=== PATIENT | male | born 1945 | race Caucasian/White ===

== ENCOUNTER 2019-01-04 16:26 | Emergency (ER) | payer MEDICARE, BC ==
[2019-01-04 18:22] VITALS: BP 106/58
--- NOTE | 2019-01-04 18:24 | EDM.PDOC ---
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 - Related Data Allergies Allergy/AdvReac Type Severity Reaction Status Date / Time No Known Allergies Allergy Verified 01/04/19 18:01 Home Meds: Home Meds Insulin Glarg,Human.Rec.Analog [Lantus] 54 unit SUBCUT BEDTIME 07/19/14 [History ] Insulin Aspart [Novolog] 12 - 15 unit SQ TID 03/30/16 [History] Omeprazole 20 mg PO DAILY 05/18/18 [History] Rosuvastatin [Crestor] 20 mg PO DAILY 05/18/18 [History] metFORMIN [Glucophage XR] 1,000 mg PO DAILY 05/18/18 [History] metFORMIN [Glucophage] 500 mg PO BEDTIME 05/18/18 [History] Past Medical History HEENT History: Reports: Cataract 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 Respiratory History: Reports: None Gastrointestinal History: Reports: None Genitourinary History: Reports: Pyelonephritis Neurological History: Reports: None Psychiatric History: Reports: None Endocrine/Metabolic History: Reports: Diabetes, Type II Hematologic History: Reports: None Immunologic History: Reports: None Oncologic (Cancer) History: Reports: Esophageal Other Oncologic History: esophageal cancer Dermatologic History: Reports: None - Past Surgical History Head Surgeries/Procedures: Reports: None HEENT Surgical History: Reports: Oral Surgery, Tonsillectomy Cardiovascular Surgical History: GI Surgical History: Reports: Appendectomy, Colonoscopy Neurological Surgical History: Reports: C-Spine Musculoskeletal Surgical History: Reports: Other (See Below) Social & Family History - Family History Family Medical History: Noncontributory - Tobacco Use Smoking Status *Q: Former Smoker Used Tobacco, but Quit: Yes Month/Year Tobacco Last Used: 12 - Caffeine Use Caffeine Use: Reports: None - Recreational Drug Use Recreational Drug Use: No ED ROS GENERAL - Review of Systems Review Of Systems: See Below Constitutional: Reports: Weight Loss HEENT: Reports: No Symptoms Respiratory: Reports: No Symptoms Cardiovascular: Reports: No Symptoms Endocrine: Reports: No Symptoms GI/Abdominal: Reports: No Symptoms, Other (He can swallow water. Cannot eat solid foods) : Reports: No Symptoms Musculoskeletal: Reports: No Symptoms Skin: Reports: No Symptoms Neurological: Reports: No Symptoms, Weakness Psychiatric: Reports: No Symptoms Hematologic/Lymphatic: Reports: Anemia Immunologic: Reports: No Symptoms ED EXAM, GENERAL - Physical Exam Exam: See Below Free Text/Narrative:: This pleasant 73-year-old gentleman had recent subacute resection of cancer and has a feeding tube in place the feeding tube came out this evening proxy 45 minutes ago. He was unable to replace it. He denies abdominal pain chest pain shortness breath or lightheadedness. He has remarkably pale. I would guess his hemoglobin is between 8 and 10. Exam Limited By: No Limitations General Appearance: Alert, WD/WN, No Apparent Distress Eye Exam: Bilateral Eye: Normal Inspection (Pale conjunctiva of the [place]brae) Ear Exam: Bilateral Ear: Auricle Normal (During normal) Nose: Normal Inspection Throat/Mouth: Normal Inspection, Normal Lips, Normal Teeth, Normal Gums, Normal Oropharynx, Normal Voice Head: Atraumatic, Normocephalic Neck: Normal Inspection, Other (No bruits) Respiratory/Chest: No Respiratory Distress, Lungs Clear, Normal Breath Sounds, No Accessory Muscle Use, Chest Non-Tender, Other (Sternal incision) Cardiovascular: Normal Peripheral Pulses Peripheral Pulses: 1+: Carotid (L), Carotid (R) (No bruits), Radial (L), Radial (R) GI/Abdominal: Normal Bowel Sounds, Soft, Non-Tender, No Organomegaly, No Distention (Male) Exam: Deferred Rectal (Males) Exam: Deferred Back Exam: Normal Inspection Extremities: Normal Inspection, Normal Range of Motion, Non-Tender, No Pedal Edema Neurological: Alert, Oriented, CN II-XII Intact, Normal Cognition, Normal Gait, No Motor/Sensory Deficits Psychiatric: Normal Affect, Normal Mood Skin Exam: Warm, Dry, Intact ED GENERAL MEDICAL PROCEDURES - Additional/Other Procedure(s) Other (Free Text) Procedure(s): Gastric feeding tube was replaced. The tube could not be advanced beyond 1.8 cmf consequently an catheter placed established entry at the stomach. Once good flow was noted and gastric contents noted than the distal end of the feeding tube was cut off and attempts are made to pass the feeding tube over this catheter. The catheter passed to within 1 cm of the tip in the tips balloon would not allow for the passage consequently a intubation stylette was fashioned with removal of the plastic covering. Once the stylette was in place then the gastrostomy tube advanced over the stylette and through the orifice of the gastric ostomy. Patient tolerated this well. Subsequent flash of Gastrografin resulted good x-ray documented entry/placement of the gastrostomy tube into the stomach. 10 mL of fluid were inflated into the gastrotomy feeding tube balloon. Patient tolerated this well. No couple cases. Course - Vital Signs Last Recorded V/S: Last Vital Signs Temp 35.9 C 01/04/19 16:26 Pulse 69 01/04/19 16:26 Resp 18 01/04/19 16:26 BP 115/69 01/04/19 16:26 Pulse Ox 97 01/04/19 16:26 - Orders/Labs/Meds Orders: Active Orders 24 hr Category Date Time Status KUB [Abdomen 1V Flat] [CR] Stat Exams 01/04/19 17:47 Taken Departure - Departure Time of Disposition: 18:45 (Replacement of gastrostomy feeding tube that had fallen out. Esophageal carcinoma resection. Anemia assumed because of his very pale conjunctival palpebrae.) Disposition: Home, Self-Care 01 Condition: Good Clinical Impression: Complication of feeding tube, Esophageal carcinoma Anemia Qualifiers: Anemia type: iron deficiency Iron deficiency anemia type: chronic blood loss Qualified Code(s): D50.0 - Iron deficiency anemia secondary to blood loss ( chronic) - Discharge Information *PRESCRIPTION DRUG MONITORING PROGRAM REVIEWED*: Not Applicable *COPY OF PRESCRIPTION DRUG MONITORING REPORT IN PATIENT ALDO: Not Applicable Instructions: PEG Tube Home Guide, [id number], Gastrostomy Tube Replacement, Care After Referrals: Abelardo Huang MD [Primary Care Provider] - Forms: ED Department Discharge Additional Instructions: may feed as usual follow up with your primary care as needed - My Orders Last 24 Hours: My Active Orders 01/04/19 17:47 KUB [Abdomen 1V Flat] [CR] Stat - Assessment/Plan Last 24 Hours: My Active Orders 01/04/19 17:47 KUB [Abdomen 1V Flat] [CR] Stat
== END 2019-01-04 18:04 | disposition home or self-care (01) ==
LOC: FB.ED 16:26
DX: K94.23 Gastrostomy malfunction (principal); C15.9 Malignant neoplasm of esophagus, unspecified; D50.0 Iron deficiency anemia secondary to blood loss (chronic); Z87.891 Personal history of nicotine dependence; E11.9 Type 2 diabetes mellitus without complications; Z79.4 Long term (current) use of insulin; Z79.899 Other long term (current) drug therapy
CPT/HCPCS: 49450; 74018; 99283-25

== ENCOUNTER 2021-01-13 19:02 | Inpatient (IN) | payer MEDICARE, BC ==
[2021-01-13] MEDS ORDERED: Sodium Chloride 0.9% 10 ML Syringe FLUSH PRN (19:30)
[2021-01-13] MEDS ORDERED: Ondansetron 4 MG/2 ML SDV IVPUSH STA ×2 (19:31→20:44)
[2021-01-13] MEDS ORDERED: Sodium Chloride 0.9% 1,000 ML IV SCH (19:45)
--- NOTE | 2021-01-13 20:44 | EDM.PDOC ---
ED HPI GENERAL MEDICAL PROBLEM - General Chief Complaint: General Stated Complaint: Nausea & Vomiting Time Seen by Provider: 01/13/21 19:30 Source of Information: Reports: Patient, Family History Limitations: Reports: No Limitations - History of Present Illness INITIAL COMMENTS - FREE TEXT/NARRATIVE: Patient a 75 YO M who presented to the ED with his son because of pe rsistent nausea and vomiting but no diarrhea. It started 4 days ago and couldn't keep anything down and is feeling weak. There is no associated abdominal, changes in bowel movement or urinary symptoms. He doesn't have any fever, chills, cough/cold symptoms. He completed his Covid vaccination 1-2 months ago and no recent exposure. He has a history of stage 3 esophageal CA which was treated with chemo and radiation 2 years ago. Upper Abdomen Pain Score (Numeric/FACES): 4 - Related Data Allergies Allergy/AdvReac Type Severity Reaction Status Date / Time No Known Allergies Allergy Verified 01/13/21 20:18 Home Meds: Home Meds Insulin Glarg,Human.Rec.Analog [Lantus] 54 unit SUBCUT BEDTIME 07/19/14 [History] Insulin Aspart [Novolog] 20 unit SQ TID 03/30/16 [History] Rosuvastatin [Crestor] 20 mg PO DAILY 05/18/18 [History] metFORMIN [Glucophage] 500 mg PO BEDTIME 05/18/18 [History] Aspirin [Aspirin EC] 325 mg PO DAILY 01/13/21 [History] Gabapentin [Neurontin] 100 mg PO BEDTIME 01/13/21 [History] Magnesium 200 mg PO DAILY 01/13/21 [History] Metoprolol Succinate [Toprol XL] 12.5 mg PO DAILY 01/13/21 [History] Mirtazapine 15 mg PO BEDTIME 01/13/21 [History] Pantoprazole Sodium [Protonix] 40 mg PO DAILY 01/13/21 [History] Past Medical History HEENT History: Reports: Cataract 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 Respiratory History: Reports: None Gastrointestinal History: Reports: None Genitourinary History: Reports: Pyelonephritis Neurological History: Reports: None Psychiatric History: Reports: None Endocrine/Metabolic History: Reports: Diabetes, Type II Hematologic History: Reports: None Immunologic History: Reports: None Oncologic (Cancer) History: Reports: Esophageal Other Oncologic History: esophageal cancer Dermatologic History: Reports: None - Past Surgical History Head Surgeries/Procedures: Reports: None HEENT Surgical History: Reports: Oral Surgery, Tonsillectomy Cardiovascular Surgical History: Reports: Coronary Artery Bypass GI Surgical History: Reports: Appendectomy, Colonoscopy Neurological Surgical History: Reports: C-Spine Musculoskeletal Surgical History: Reports: Other (See Below) Other Musculoskeletal Surgeries/Procedures:: CERVICAL SPINE FUSION, BUNIONECTOMY Social & Family History - Family History Family Medical History: No Pertinent Family History - Tobacco Use Tobacco Use Status *Q: Never Tobacco User - Caffeine Use Caffeine Use: Reports: None - Recreational Drug Use Recreational Drug Use: No ED ROS GENERAL - Review of Systems Review Of Systems: See Below Constitutional: Reports: Weakness HEENT: Reports: No Symptoms Respiratory: Reports: No Symptoms Cardiovascular: Reports: No Symptoms Endocrine: Reports: No Symptoms GI/Abdominal: Reports: No Symptoms, Nausea, Vomiting : Reports: No Symptoms Musculoskeletal: Reports: No Symptoms Skin: Reports: No Symptoms Neurological: Reports: No Symptoms Psychiatric: Reports: No Symptoms Hematologic/Lymphatic: Reports: No Symptoms ED EXAM, GENERAL - Physical Exam Exam: See Below Exam Limited By: No Limitations General Appearance: Alert, No Apparent Distress Ears: Normal External Exam, Normal Canal, Hearing Grossly Normal Nose: Normal Inspection, Normal Mucosa, No Blood Throat/Mouth: Normal Inspection, Normal Lips, Normal Teeth Head: Atraumatic, Normocephalic Neck: Normal Inspection, Supple, Non-Tender, Full Range of Motion Respiratory/Chest: No Respiratory Distress, Lungs Clear, Normal Breath Sounds, No Accessory Muscle Use, Chest Non-Tender Cardiovascular: Normal Peripheral Pulses, Regular Rate, Rhythm, No Edema, No Gallop, No JVD, No Murmur, No Rub GI/Abdominal: Normal Bowel Sounds, Soft, Non-Tender, No Organomegaly, No Distention, No Abnormal Bruit, No Mass Back Exam: Normal Inspection, Full Range of Motion Extremities: Normal Inspection, Normal Range of Motion, Non-Tender, No Pedal Edema, Normal Capillary Refill Neurological: Alert, Oriented, CN II-XII Intact, Normal Cognition, Normal Reflexes, No Motor/Sensory Deficits Course - Vital Signs Text/Narrative:: Lab result was discussed with patient and his son NS 1 L bolus Zofran 4 mg IV x2 doses Code status:Full code Last Recorded V/S: Last Vital Signs Temp 36.7 C 01/13/21 19:07 Pulse 99 01/13/21 19:07 Resp 18 01/13/21 19:07 BP 150/73 H 01/13/21 19:07 Pulse Ox 99 01/13/21 19:07 - Orders/Labs/Meds Orders: Active Orders 24 hr Category Date Time Status Patient Status [ADT] Routine ADT 01/13/21 21:08 Active Blood Glucose Check, Bedside [RC] WITHMEALSANDBED Care 01/13/21 21:08 Active Intake and Output [RC] QSHIFT Care 01/13/21 21:11 Active Oxygen Therapy [RC] PRN Care 01/13/21 21:08 Active Pulse Oximetry [RC] PRN Care 01/13/21 21:11 Active Up With Assistance [RC] ASDIRECTED Care 01/13/21 21:08 Active VTE/DVT Education [RC] Per Unit Routine Care 01/13/21 21:08 Active Vital Signs [RC] Q4H Care 01/13/21 21:08 Active Heart Healthy Diet [DIET] Diet 01/14/21 Breakfast Ordered BASIC METABOLIC PANEL,BMP [CHEM] AM Lab 01/14/21 05:11 Ordered CBC WITH AUTO DIFF [HEME] AM Lab 01/14/21 05:11 Ordered MAGNESIUM [CHEM] AM Lab 01/14/21 05:11 Ordered MAGNESIUM [CHEM] AM Lab 01/15/21 05:11 Ordered Docusate Sodium/Sennosides [Senna Plus] Med 01/13/21 21:08 Ordered 1 tab PO BID PRN Enoxaparin [Lovenox] Med 01/13/21 21:15 Ordered 40 mg SUBCUT Q24H Gabapentin [Neurontin] Med 01/14/21 21:00 Ordered 100 mg PO BEDTIME Magnesium [Magnesium] Med 01/14/21 09:00 Ordered 200 mg PO DAILY Metoprolol Succinate [Toprol XL] Med 01/14/21 09:00 Ordered 12.5 mg PO DAILY Mirtazapine [Remeron] Med 01/14/21 21:00 Ordered 15 mg PO BEDTIME Ondansetron [Zofran] Med 01/13/21 21:08 Ordered 4 mg IV Q4H PRN Pantoprazole [ProTONIX] Med 01/14/21 09:00 Ordered 40 mg PO DAILY Rosuvastatin [Crestor] Med 01/14/21 09:00 Ordered 20 mg PO DAILY Sodium Chloride 0.9% [Normal Saline] 1,000 ml Med 01/13/21 19:45 Active IV ASDIRECTED Sodium Chloride 0.9% [Normal Saline] 1,000 ml Med 01/13/21 21:00 Active IV ASDIRECTED Sodium Chloride 0.9% [Saline Flush] Med 01/13/21 19:30 Active 10 ml FLUSH ASDIRECTED PRN hydrOXYzine HCL [Vistaril] Med 01/13/21 21:08 Ordered 50 mg IM Q6H PRN Saline Lock Insert [OM.PC] Routine Oth 01/13/21 19:30 Ordered Resuscitation Status Routine Resus Stat 01/13/21 21:08 Ordered Medication Orders Enoxaparin Sodium (Lovenox) 40 mg SUBCUT Q24H [facility] Gabapentin (Neurontin) 100 mg PO BEDTIME [facility] Hydroxyzine HCl (Vistaril) 50 mg IM Q6H PRN PRN Reason: Nausea/Vomiting Sodium Chloride (Normal Saline) 1,000 mls @ 999 mls/hr IV ASDIRECTED [facility] Last Admin: 01/13/21 19:55 Dose: 999 mls/hr Documented by: MARYLOU Sodium Chloride (Normal Saline) 1,000 mls @ 125 mls/hr IV ASDIRECTED [facility] Last Admin: 01/13/21 20:58 Dose: 125 mls/hr Documented by: MARYLOU Metoprolol Succinate (Toprol Xl) 12.5 mg PO DAILY [facility] Mirtazapine (Remeron) 15 mg PO BEDTIME [facility] Non-Formulary Medication (Magnesium [Magnesium]) 200 mg PO DAILY [facility] Non-Formulary Medication (Insulin Aspart [Novolog Flexpen]) 20 unit SQ TID [facility] Non-Formulary Medication (Insulin Glarg,Human.Rec.Analog [Lantus]) 54 unit SUBCUT BEDTIME [facility] Ondansetron HCl (Zofran) 4 mg IV Q4H PRN PRN Reason: Nausea/Vomiting Pantoprazole Sodium (Protonix) 40 mg PO DAILY [facility] Rosuvastatin Calcium (Crestor) 20 mg PO DAILY [facility] Senna/Docusate Sodium (Senna Plus) 1 tab PO BID PRN PRN Reason: Constipation Sodium Chloride (Saline Flush) 10 ml FLUSH ASDIRECTED PRN PRN Reason: Keep Vein Open Labs: Laboratory Tests 01/13/21 01/13/21 01/13/21 Range/Units 19:50 19:50 19:50 WBC 13.1 H (3.2-10.1) x10-3/uL RBC 3.72 L (3.90-5.90) x10(6)uL Hgb 11.5 L (12.9-17.7) g/dL Hct 34.9 L (38.3-50.1) % MCV 93.8 (80.8-98.7) fL MCH 31.0 (27.0-33.3) pg MCHC 33.1 (28.7-35.3) g/dL RDW 13.9 (12.4-15.0) % Plt Count 251 (117-477) x10(3)uL MPV 7.5 (6.7-11.0) fL Neut % (Auto) 87.0 H (40.3-71.8) % Lymph % (Auto) 3.9 L (15.8-45.3) % [place] % (Auto) 9.0 (5.5-15.2) % Eos % (Auto) 0.1 (0.1-6.8) % Baso % (Auto) 0.0 L (0.3-3.8) % Neut # (Auto) 11.4 H (1.7-6.9) x10-3/uL Lymph # (Auto) 0.5 (0.5-4.5) x10-3/uL [place] # (Auto) 1.2 (0.0-1.2) x10-3/uL Eos # (Auto) 0.0 (0.0-0.6) x10-3/uL Baso # (Auto) 0.0 (0.0-0.3) x10-3/uL Sodium 130 L (135-145) mmol/L Potassium 3.8 (3.5-5.3) mmol/L Chloride 90 L D (100-110) mmol/L Carbon Dioxide 22 (21-32) mmol/L BUN 36 H (7-18) mg/dL Creatinine 2.4 H* (0.70-1.30) mg/dL Est Cr Clr Drug Dosing TNP Estimated GFR (MDRD) 26 L (>60) BUN/Creatinine Ratio 15.0 (9-20) Glucose 439 H* D (80-116) mg/dL Calcium 8.6 (8.6-10.2) mg/dL Total Bilirubin 0.5 (0.1-1.3) mg/dL AST 45 H D (5-25) IU/L ALT 35 D (12-36) U/L Alkaline Phosphatase 130 H (56-112) IU/L Total Protein 7.1 (6.0-8.0) g/dL Albumin 2.7 L (3.2-4.6) g/dL Globulin 4.4 g/dL Albumin/Globulin Ratio 0.6 Amylase 18 L (25-115) U/L Lipase 26 L (73-393) U/L Urine Color (YELLOW) Urine Appearance (CLEAR) Urine pH (5.0-6.5) Ur Specific [place] (1.010-1.025) Urine Protein (NEGATIVE) mg/dL Urine Glucose (UA) (NORMAL) mg/dL Urine Ketones (NEGATIVE) mg/dL Urine Occult Blood (NEGATIVE) Urine Nitrite (NEGATIVE) Urine Bilirubin (NEGATIVE) Urine Urobilinogen (NEGATIVE) mg/dL Ur Leukocyte Esterase (NEGATIVE) Urine RBC (0-5) Urine WBC (0-5) Ur Squamous Epith Cells (NS,R,O) Amorphous Sediment Urine Bacteria (NS) Coarse Granular Casts (NS) SARS-CoV-2 RNA (RADHA) (NEGATIVE) 01/13/21 01/13/21 Range/Units 20:00 20:43 WBC (3.2-10.1) x10-3/uL RBC (3.90-5.90) x10(6)uL Hgb (12.9-17.7) g/dL Hct (38.3-50.1) % MCV (80.8-98.7) fL MCH (27.0-33.3) pg MCHC (28.7-35.3) g/dL RDW (12.4-15.0) % Plt Count (117-477) x10(3)uL MPV (6.7-11.0) fL Neut % (Auto) (40.3-71.8) % Lymph % (Auto) (15.8-45.3) % [place] % (Auto) (5.5-15.2) % Eos % (Auto) (0.1-6.8) % Baso % (Auto) (0.3-3.8) % Neut # (Auto) (1.7-6.9) x10-3/uL Lymph # (Auto) (0.5-4.5) x10-3/uL [place] # (Auto) (0.0-1.2) x10-3/uL Eos # (Auto) (0.0-0.6) x10-3/uL Baso # (Auto) (0.0-0.3) x10-3/uL Sodium (135-145) mmol/L Potassium (3.5-5.3) mmol/L Chloride (100-110) mmol/L Carbon Dioxide (21-32) mmol/L BUN (7-18) mg/dL Creatinine (0.70-1.30) mg/dL Est Cr Clr Drug Dosing Estimated GFR (MDRD) (>60) BUN/Creatinine Ratio (9-20) Glucose (80-116) mg/dL Calcium (8.6-10.2) mg/dL Total Bilirubin (0.1-1.3) mg/dL AST (5-25) IU/L ALT (12-36) U/L Alkaline Phosphatase (56-112) IU/L Total Protein (6.0-8.0) g/dL Albumin (3.2-4.6) g/dL Globulin g/dL Albumin/Globulin Ratio Amylase (25-115) U/L Lipase (73-393) U/L Urine Color Yellow (YELLOW) Urine Appearance Slightly cloudy (CLEAR) Urine pH 6.0 (5.0-6.5) Ur Specific [place] 1.020 (1.010-1.025) Urine Protein 30 H (NEGATIVE) mg/dL Urine Glucose (UA) >1000 H (NORMAL) mg/dL Urine Ketones 50 H (NEGATIVE) mg/dL Urine Occult Blood Large H (NEGATIVE) Urine Nitrite Negative (NEGATIVE) Urine Bilirubin Negative (NEGATIVE) Urine Urobilinogen Normal (NEGATIVE) mg/dL Ur Leukocyte Esterase Negative (NEGATIVE) Urine RBC 5-10 H (0-5) Urine WBC 0-5 (0-5) Ur Squamous Epith Cells Few H (NS,R,O) Amorphous Sediment Few Urine Bacteria Few H (NS) Coarse Granular Casts Few H (NS) SARS-CoV-2 RNA (RADHA) Negative (NEGATIVE) Meds: Medications Generic Name Dose Route Start Last Admin Trade Name Miguel PRN Reason Stop Dose Admin Enoxaparin Sodium 40 mg 01/13/21 21:15 Lovenox SUBCUT Q24H TEOD[facility]A Gabapentin 100 mg 01/14/21 21:00 Neurontin PO BEDTIME TE[facility]A Hydroxyzine HCl 50 mg 01/13/21 21:08 Vistaril IM Q6H PRN Nausea/Vomiting Sodium Chloride 1,000 mls @ 999 mls/hr 01/13/21 19:45 01/13/21 19:55 Normal Saline IV 999 mls/hr ASDIRECTED TEODORA Administration Sodium Chloride 1,000 mls @ 125 mls/hr 01/13/21 21:00 01/13/21 20:58 Normal Saline IV 125 mls/hr ASDIRECTED TEODORA Administration Metoprolol Succinate 12.5 mg 01/14/21 09:00 Toprol Xl PO DAILY TEOD[facility]A Mirtazapine 15 mg 01/14/21 21:00 Remeron PO BEDTIME TE[facility] Non-Formulary Medication 200 mg 01/14/21 09:00 Magnesium [Magnesium] PO DAILY TE[facility] Non-Formulary Medication 20 unit 01/13/21 21:34 Insulin Aspart [Novolog Flexpen] SQ TID TE[facility] Non-Formulary Medication 54 unit 01/13/21 21:35 Insulin Glarg,Human.Rec.Analog [Lantus] SUBCUT BEDTIME [facility] Ondansetron HCl 4 mg 01/13/21 21:08 Zofran IV Q4H PRN Nausea/Vomiting Pantoprazole Sodium 40 mg 01/14/21 09:00 Protonix PO DAILY [facility] Rosuvastatin Calcium 20 mg 01/14/21 09:00 Crestor PO DAILY TEOD[facility]A Senna/Docusate Sodium 1 tab 01/13/21 21:08 Senna Plus PO BID PRN Constipation Sodium Chloride 10 ml 01/13/21 19:30 Saline Flush FLUSH ASDIRECTED PRN Keep Vein Open Discontinued Medications Generic Name Dose Route Start Last Admin Trade Name Miguel PRN Reason Stop Dose Admin Non-Formulary Medication 20 unit 01/14/21 09:00 Insulin Aspart [Novolog Flexpen] SQ TID [facility] Non-Formulary Medication 54 unit 01/14/21 21:00 Insulin Glarg,Human.Rec.Analog [Lantus] SUBCUT BEDTIME [facility] Ondansetron HCl 4 mg 01/13/21 19:31 01/13/21 19:55 Zofran IVPUSH 01/13/21 19:32 4 mg NOW STA Administration Ondansetron HCl 4 mg 01/13/21 20:44 01/13/21 20:53 Zofran IVPUSH 01/13/21 20:45 4 mg NOW STA Administration Departure - Departure Time of Disposition: 21:30 Disposition: Refer to Observation Condition: Good Clinical Impression: Nausea and vomiting, Dehydration, Acute kidney injury, Esophageal cancer, Diabetes mellitus - Discharge Information Sepsis Event Note (ED) - Evaluation Sepsis Screening Result: No Definite Risk - Focused Exam Vital Signs: Vital Signs Temp Pulse Resp BP Pulse Ox 01/13/21 19:07 36.7 C 99 18 150/73 H 99 - My Orders Last 24 Hours: My Active Orders 01/13/21 19:30 Sodium Chloride 0.9% [Saline Flush] 10 ml FLUSH ASDIRECTED PRN Saline Lock Insert [OM.PC] Routine 01/13/21 19:45 Sodium Chloride 0.9% [Normal Saline] 1,000 ml IV ASDIRECTED 01/13/21 21:00 Sodium Chloride 0.9% [Normal Saline] 1,000 ml IV ASDIRECTED 01/13/21 21:08 Patient Status [ADT] Routine Blood Glucose Check, Bedside [RC] WITHMEALSANDBED Oxygen Therapy [RC] PRN Up With Assistance [RC] ASDIRECTED VTE/DVT Education [RC] Per Unit Routine Vital Signs [RC] Q4H Docusate Sodium/Sennosides [Senna Plus] 1 tab PO BID PRN Ondansetron [Zofran] 4 mg IV Q4H PRN hydrOXYzine HCL [Vistaril] 50 mg IM Q6H PRN Resuscitation Status Routine 01/13/21 21:11 Intake and Output [RC] QSHIFT Pulse Oximetry [RC] PRN 01/13/21 21:15 Enoxaparin [Lovenox] 40 mg SUBCUT Q24H 01/14/21 05:11 BASIC METABOLIC PANEL,BMP [CHEM] AM CBC WITH AUTO DIFF [HEME] AM MAGNESIUM [CHEM] AM 01/14/21 Breakfast Heart Healthy Diet [DIET] 01/14/21 09:00 Magnesium [Magnesium] 200 mg PO DAILY Metoprolol Succinate [Toprol XL] 12.5 mg PO DAILY Pantoprazole [ProTONIX] 40 mg PO DAILY Rosuvastatin [Crestor] 20 mg PO DAILY 01/14/21 21:00 Gabapentin [Neurontin] 100 mg PO BEDTIME Mirtazapine [Remeron] 15 mg PO BEDTIME 01/15/21 05:11 MAGNESIUM [CHEM] AM - Assessment/Plan Last 24 Hours: My Active Orders 01/13/21 19:30 Sodium Chloride 0.9% [Saline Flush] 10 ml FLUSH ASDIRECTED PRN Saline Lock Insert [OM.PC] Routine 01/13/21 19:45 Sodium Chloride 0.9% [Normal Saline] 1,000 ml IV ASDIRECTED 01/13/21 21:00 Sodium Chloride 0.9% [Normal Saline] 1,000 ml IV ASDIRECTED 01/13/21 21:08 Patient Status [ADT] Routine Blood Glucose Check, Bedside [RC] WITHMEALSANDBED Oxygen Therapy [RC] PRN Up With Assistance [RC] ASDIRECTED VTE/DVT Education [RC] Per Unit Routine Vital Signs [RC] Q4H Docusate Sodium/Sennosides [Senna Plus] 1 tab PO BID PRN Ondansetron [Zofran] 4 mg IV Q4H PRN hydrOXYzine HCL [Vistaril] 50 mg IM Q6H PRN Resuscitation Status Routine 01/13/21 21:11 Intake and Output [RC] QSHIFT Pulse Oximetry [RC] PRN 01/13/21 21:15 Enoxaparin [Lovenox] 40 mg SUBCUT Q24H 01/14/21 05:11 BASIC METABOLIC PANEL,BMP [CHEM] AM CBC WITH AUTO DIFF [HEME] AM MAGNESIUM [CHEM] AM 01/14/21 Breakfast Heart Healthy Diet [DIET] 01/14/21 09:00 Magnesium [Magnesium] 200 mg PO DAILY Metoprolol Succinate [Toprol XL] 12.5 mg PO DAILY Pantoprazole [ProTONIX] 40 mg PO DAILY Rosuvastatin [Crestor] 20 mg PO DAILY 01/14/21 21:00 Gabapentin [Neurontin] 100 mg PO BEDTIME Mirtazapine [Remeron] 15 mg PO BEDTIME 01/15/21 05:11 MAGNESIUM [CHEM] AM
[2021-01-13] MEDS: Sodium Chloride 0.9% 1,000 ML IV SCH (20:58)
[2021-01-13] MEDS ORDERED: hydrOXYzine HCl 50 MG/ML SDV IM PRN (21:08)
[2021-01-13] MEDS ORDERED: Ondansetron 4 MG/2 ML SDV IV PRN (21:08)
[2021-01-13] MEDS ORDERED: INSULIN ASPART 20 UNIT SQ SCH (21:34)
[2021-01-13] MEDS ORDERED: INSULIN GLARGINE SUBCUT SCH (21:35)
[2021-01-13] MEDS ORDERED: Insulin Glargine,Human Rec. Analog 100 Units/ML 3 ML Pen SUBCUT SCH (22:30)
[2021-01-13] MEDS ORDERED: Mirtazapine 15 MG Tab PO SCH (22:45)
[2021-01-13] MEDS ORDERED: Gabapentin 100 MG Cap PO SCH (22:45)
[2021-01-13] MEDS ORDERED: Enoxaparin 40 MG/0.4 ML Syringe SUBCUT SCH (22:45)
[2021-01-13] MEDS: Insulin Lispro 100 Unit/ML 3 ML KwikPen SUBCUT SCH (22:54)
[2021-01-14] MEDS ORDERED: Pantoprazole 40 MG Tab.CR PO SCH (07:30)
[2021-01-14] MEDS ORDERED: Insulin Glargine,Human Rec. Analog 100 Units/ML 3 ML Pen SUBCUT SCH (08:12)
[2021-01-14] MEDS: Acetaminophen 325 MG Tab PO PRN ×2 (08:36→15:14)
[2021-01-14] MEDS: Insulin Lispro 100 Unit/ML 3 ML KwikPen SUBCUT SCH ×3 (08:37→17:38)
[2021-01-14] MEDS ORDERED: INSULIN ASPART 20 UNIT SQ SCH (09:00)
[2021-01-14] MEDS ORDERED: Metoprolol Succinate 25 MG Tab.ER PO SCH (09:00)
[2021-01-14] MEDS ORDERED: Rosuvastatin 20 MG Tab PO SCH (09:00)
[2021-01-14] MEDS ORDERED: Magnesium Oxide 400 MG Tab PO SCH (09:00)
[2021-01-14] MEDS ORDERED: Potassium Chloride 20 MEQ in Premix Bag 2 BAG IV ONE (10:20)
--- NOTE | 2021-01-14 10:41 | PCM.HP.2 ---
H&P History of Present Illness - General Date of Service: 01/14/21 Admit Problem/Dx: Admission Diagnosis/Problem Admission Diagnosis/Problem Nausea and vomiting Source of Information: Patient - History of Present Illness Initial Comments - Free Text/Narative: 75-year-old gentleman with past medical history significant for esophageal cancer, CABG, diabetes mellitus type 2 poorly controlled, came to the emergency department for evaluation of nausea, vomiting, dehydration. Patient states that symptoms started approximately 5 days ago. He denies any travel, new foods, or sick contacts. He states that the symptoms are similar to when he had esophageal cancer approximately 3 years ago. His cancer was treated with chemotherapy and radiation, he did not have surgery. He stated that his last EGD was approximately 2 months ago and he did not remember being told of any adverse findings. He denies chest pain related to vomiting, shortness of breath. He has no other concerns or complaints at this time including no dysuria. Onset of Symptoms: Reports: Sudden Duration of Symptoms: Reports: Day(s): Location: Reports: Abdomen, Generalized Quality: Reports: Dull, Pressure Severity: Moderate Improves with: Reports: None Worsens with: Reports: Eating, Movement Associated Symptoms: Reports: Diaphoresis, Fever/Chills, Loss of Appetite, Nausea/Vomiting Upper Abdomen Pain Score (Numeric/FACES): 4 - Related Data Allergies/Adverse Reactions: Allergies Allergy/AdvReac Type Severity Reaction Status Date / Time No Known Allergies Allergy Verified 01/13/21 20:18 Home Medications: Home Meds Insulin Glarg,Human.Rec.Analog [Lantus] 54 unit SUBCUT BEDTIME 07/19/14 [History] Insulin Aspart [Novolog] 20 unit SQ TID 03/30/16 [History] Rosuvastatin [Crestor] 20 mg PO DAILY 05/18/18 [History] metFORMIN [Glucophage] 500 mg PO BEDTIME 05/18/18 [History] Aspirin [Aspirin EC] 325 mg PO DAILY 01/13/21 [History] Gabapentin [Neurontin] 100 mg PO BEDTIME 01/13/21 [History] Magnesium 200 mg PO DAILY 01/13/21 [History] Metoprolol Succinate [Toprol XL] 12.5 mg PO DAILY 01/13/21 [History] Mirtazapine 15 mg PO BEDTIME 01/13/21 [History] Pantoprazole Sodium [Protonix] 40 mg PO DAILY 01/13/21 [History] Past Medical History HEENT History: Reports: Cataract 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 Respiratory History: Reports: None Gastrointestinal History: Reports: None Genitourinary History: Reports: Pyelonephritis Neurological History: Reports: None Psychiatric History: Reports: None Endocrine/Metabolic History: Reports: Diabetes, Type II Hematologic History: Reports: None Immunologic History: Reports: None Oncologic (Cancer) History: Reports: Esophageal Other Oncologic History: esophageal cancer Dermatologic History: Reports: None - Past Surgical History Head Surgeries/Procedures: Reports: None HEENT Surgical History: Reports: Oral Surgery, Tonsillectomy Cardiovascular Surgical History: Reports: Coronary Artery Bypass GI Surgical History: Reports: Appendectomy, Colonoscopy Neurological Surgical History: Reports: C-Spine Musculoskeletal Surgical History: Reports: Other (See Below) Other Musculoskeletal Surgeries/Procedures:: CERVICAL SPINE FUSION, BUNIONECTOMY Social & Family History - Family History Family Medical History: No Pertinent Family History - Tobacco Use Tobacco Use Status *Q: Never Tobacco User - Caffeine Use Caffeine Use: Reports: None - Recreational Drug Use Recreational Drug Use: No H&P Review of Systems - Review of Systems: Review Of Systems: See Below General: Reports: Chills, Malaise, Weakness, Fatigue, Decreased Appetite HEENT: Reports: No Symptoms Pulmonary: Reports: No Symptoms Cardiovascular: Reports: No Symptoms Gastrointestinal: Reports: Abdominal Pain, Decreased Appetite, Nausea, Vomiting Genitourinary: Reports: No Symptoms Musculoskeletal: Reports: No Symptoms Skin: Reports: No Symptoms Psychiatric: Reports: No Symptoms Neurological: Reports: No Symptoms Hematologic/Lymphatic: Reports: No Symptoms Immunologic: Reports: No Symptoms Exam - Exam Exam: See Below - Vital Signs Vital Signs: Last Vital Signs Temp 36.8 C 01/14/21 04:00 Pulse 109 H 01/14/21 10:05 Resp 18 01/14/21 04:00 BP 139/84 01/14/21 10:05 Pulse Ox 99 01/14/21 04:00 Weight: 88.768 kg - Exam Quality Assessment: Supplemental Oxygen, DVT Prophylaxis General: Alert, Oriented, Cooperative, Mild Distress HEENT: EOMI, Mucosa Moist & Pettus Lungs: Clear to Auscultation Cardiovascular: Regular Rate, Regular Rhythm GI/Abdominal Exam: Normal Bowel Sounds, Tender, Other (Likely lipoma abdominal wall, right lower quadrant) Back Exam: Normal Inspection. No: CVA Tenderness (R), CVA Tenderness (L) Extremities: Normal Inspection Peripheral Pulses: 2+: Radial (L), Radial (R), Dorsalis Pedis (L), Dorsalis Pedis (R) Skin: Warm, Moist Neuro Extensive - Mental Status: Alert, Oriented x3, Memory Intact Psychiatric: Alert, Normal Affect, Depressed - Patient Data Lab Results Last 24 hrs: Laboratory Results - last 24 hr 01/13/21 01/13/21 01/13/21 Range/Units 19:50 19:50 19:50 WBC 13.1 H (3.2-10.1) x10-3/uL RBC 3.72 L (3.90-5.90) x10(6)uL Hgb 11.5 L (12.9-17.7) g/dL Hct 34.9 L (38.3-50.1) % MCV 93.8 (80.8-98.7) fL MCH 31.0 (27.0-33.3) pg MCHC 33.1 (28.7-35.3) g/dL RDW 13.9 (12.4-15.0) % Plt Count 251 (117-477) x10(3)uL MPV 7.5 (6.7-11.0) fL Neut % (Auto) 87.0 H (40.3-71.8) % Lymph % (Auto) 3.9 L (15.8-45.3) % Carver % (Auto) 9.0 (5.5-15.2) % Eos % (Auto) 0.1 (0.1-6.8) % Baso % (Auto) 0.0 L (0.3-3.8) % Neut # (Auto) 11.4 H (1.7-6.9) x10-3/uL Lymph # (Auto) 0.5 (0.5-4.5) x10-3/uL Carver # (Auto) 1.2 (0.0-1.2) x10-3/uL Eos # (Auto) 0.0 (0.0-0.6) x10-3/uL Baso # (Auto) 0.0 (0.0-0.3) x10-3/uL Sodium 130 L (135-145) mmol/L Potassium 3.8 (3.5-5.3) mmol/L Chloride 90 L D (100-110) mmol/L Carbon Dioxide 22 (21-32) mmol/L BUN 36 H (7-18) mg/dL Creatinine 2.4 H* (0.70-1.30) mg/dL Est Cr Clr Drug Dosing TNP Estimated GFR (MDRD) 26 L (>60) BUN/Creatinine Ratio 15.0 (9-20) Glucose 439 H* D (80-116) mg/dL Calcium 8.6 (8.6-10.2) mg/dL Magnesium (1.8-2.5) mg/dL Total Bilirubin 0.5 (0.1-1.3) mg/dL AST 45 H D (5-25) IU/L ALT 35 D (12-36) U/L Alkaline Phosphatase 130 H (56-112) IU/L Total Protein 7.1 (6.0-8.0) g/dL Albumin 2.7 L (3.2-4.6) g/dL Globulin 4.4 g/dL Albumin/Globulin Ratio 0.6 Amylase 18 L (25-115) U/L Lipase 26 L (73-393) U/L Urine Color (YELLOW) Urine Appearance (CLEAR) Urine pH (5.0-6.5) Ur Specific [place] (1.010-1.025) Urine Protein (NEGATIVE) mg/dL Urine Glucose (UA) (NORMAL) mg/dL Urine Ketones (NEGATIVE) mg/dL Urine Occult Blood (NEGATIVE) Urine Nitrite (NEGATIVE) Urine Bilirubin (NEGATIVE) Urine Urobilinogen (NEGATIVE) mg/dL Ur Leukocyte Esterase (NEGATIVE) Urine RBC (0-5) Urine WBC (0-5) Ur Squamous Epith Cells (NS,R,O) Amorphous Sediment Urine Bacteria (NS) Coarse Granular Casts (NS) SARS-CoV-2 RNA (RADHA) (NEGATIVE) 01/13/21 01/13/21 01/14/21 Range/Units 20:00 20:43 06:10 WBC 12.1 H (3.2-10.1) x10-3/uL RBC 3.88 L (3.90-5.90) x10(6)uL Hgb 11.9 L (12.9-17.7) g/dL Hct 36.2 L (38.3-50.1) % MCV 93.4 (80.8-98.7) fL MCH 30.8 (27.0-33.3) pg MCHC 33.0 (28.7-35.3) g/dL RDW 14.0 (12.4-15.0) % Plt Count 246 (117-477) x10(3)uL MPV 7.4 (6.7-11.0) fL Neut % (Auto) 87.3 H (40.3-71.8) % Lymph % (Auto) 3.6 L (15.8-45.3) % Carver % (Auto) 8.9 (5.5-15.2) % Eos % (Auto) 0.2 (0.1-6.8) % Baso % (Auto) 0.0 L (0.3-3.8) % Neut # (Auto) 10.6 H (1.7-6.9) x10-3/uL Lymph # (Auto) 0.4 L (0.5-4.5) x10-3/uL Carver # (Auto) 1.1 (0.0-1.2) x10-3/uL Eos # (Auto) 0.0 (0.0-0.6) x10-3/uL Baso # (Auto) 0.0 (0.0-0.3) x10-3/uL Sodium (135-145) mmol/L Potassium (3.5-5.3) mmol/L Chloride (100-110) mmol/L Carbon Dioxide (21-32) mmol/L BUN (7-18) mg/dL Creatinine (0.70-1.30) mg/dL Est Cr Clr Drug Dosing Estimated GFR (MDRD) (>60) BUN/Creatinine Ratio (9-20) Glucose (80-116) mg/dL Calcium (8.6-10.2) mg/dL Magnesium (1.8-2.5) mg/dL Total Bilirubin (0.1-1.3) mg/dL AST (5-25) IU/L ALT (12-36) U/L Alkaline Phosphatase (56-112) IU/L Total Protein (6.0-8.0) g/dL Albumin (3.2-4.6) g/dL Globulin g/dL Albumin/Globulin Ratio Amylase (25-115) U/L Lipase (73-393) U/L Urine Color Yellow (YELLOW) Urine Appearance Slightly cloudy (CLEAR) Urine pH 6.0 (5.0-6.5) Ur Specific [place] 1.020 (1.010-1.025) Urine Protein 30 H (NEGATIVE) mg/dL Urine Glucose (UA) >1000 H (NORMAL) mg/dL Urine Ketones 50 H (NEGATIVE) mg/dL Urine Occult Blood Large H (NEGATIVE) Urine Nitrite Negative (NEGATIVE) Urine Bilirubin Negative (NEGATIVE) Urine Urobilinogen Normal (NEGATIVE) mg/dL Ur Leukocyte Esterase Negative (NEGATIVE) Urine RBC 5-10 H (0-5) Urine WBC 0-5 (0-5) Ur Squamous Epith Cells Few H (NS,R,O) Amorphous Sediment Few Urine Bacteria Few H (NS) Coarse Granular Casts Few H (NS) SARS-CoV-2 RNA (RADHA) Negative (NEGATIVE) 01/14/21 Range/Units 06:10 WBC (3.2-10.1) x10-3/uL RBC (3.90-5.90) x10(6)uL Hgb (12.9-17.7) g/dL Hct (38.3-50.1) % MCV (80.8-98.7) fL MCH (27.0-33.3) pg MCHC (28.7-35.3) g/dL RDW (12.4-15.0) % Plt Count (117-477) x10(3)uL MPV (6.7-11.0) fL Neut % (Auto) (40.3-71.8) % Lymph % (Auto) (15.8-45.3) % Carver % (Auto) (5.5-15.2) % Eos % (Auto) (0.1-6.8) % Baso % (Auto) (0.3-3.8) % Neut # (Auto) (1.7-6.9) x10-3/uL Lymph # (Auto) (0.5-4.5) x10-3/uL Carver # (Auto) (0.0-1.2) x10-3/uL Eos # (Auto) (0.0-0.6) x10-3/uL Baso # (Auto) (0.0-0.3) x10-3/uL Sodium 133 L (135-145) mmol/L Potassium 3.3 L (3.5-5.3) mmol/L Chloride 95 L D (100-110) mmol/L Carbon Dioxide 27 (21-32) mmol/L BUN 36 H (7-18) mg/dL Creatinine 2.4 H* (0.70-1.30) mg/dL Est Cr Clr Drug Dosing 28.74 Estimated GFR (MDRD) 26 L (>60) BUN/Creatinine Ratio 15.0 (9-20) Glucose 224 H D (80-116) mg/dL Calcium 8.3 L (8.6-10.2) mg/dL Magnesium 2.1 (1.8-2.5) mg/dL Total Bilirubin (0.1-1.3) mg/dL AST (5-25) IU/L ALT (12-36) U/L Alkaline Phosphatase (56-112) IU/L Total Protein (6.0-8.0) g/dL Albumin (3.2-4.6) g/dL Globulin g/dL Albumin/Globulin Ratio Amylase (25-115) U/L Lipase (73-393) U/L Urine Color (YELLOW) Urine Appearance (CLEAR) Urine pH (5.0-6.5) Ur Specific [place] (1.010-1.025) Urine Protein (NEGATIVE) mg/dL Urine Glucose (UA) (NORMAL) mg/dL Urine Ketones (NEGATIVE) mg/dL Urine Occult Blood (NEGATIVE) Urine Nitrite (NEGATIVE) Urine Bilirubin (NEGATIVE) Urine Urobilinogen (NEGATIVE) mg/dL Ur Leukocyte Esterase (NEGATIVE) Urine RBC (0-5) Urine WBC (0-5) Ur Squamous Epith Cells (NS,R,O) Amorphous Sediment Urine Bacteria (NS) Coarse Granular Casts (NS) SARS-CoV-2 RNA (RADHA) (NEGATIVE) Result Diagrams: 01/14/21 06:10 01/14/21 06:10 Sepsis Event Note - Evaluation Sepsis Screening Result: No Definite Risk - Focused Exam Vital Signs: Vital Signs Temp Pulse Pulse Resp BP BP Pulse Ox 01/14/21 10:05 109 H 139/84 01/14/21 04:00 36.8 C 80 18 146/78 H 99 01/14/21 00:00 37.3 C 83 18 150/81 H 98 01/13/21 22:30 96 - Problem List (1) Acute kidney injury SNOMED Code(s): 44856579, 80439038 ICD Code: N17.9 - ACUTE KIDNEY FAILURE, UNSPECIFIED Status: Acute Current Visit: Yes (2) Dehydration SNOMED Code(s): 10437006 ICD Code: E86.0 - DEHYDRATION Status: Acute Current Visit: Yes (3) Diabetes mellitus SNOMED Code(s): 69627361 ICD Code: E11.9 - TYPE 2 DIABETES MELLITUS WITHOUT COMPLICATIONS Status: Acute Current Visit: Yes (4) Esophageal cancer SNOMED Code(s): 896783130 ICD Code: C15.9 - MALIGNANT NEOPLASM OF ESOPHAGUS, UNSPECIFIED Status: Acute Current Visit: Yes (5) Nausea and vomiting SNOMED Code(s): 54696730 ICD Code: R11.2 - NAUSEA WITH VOMITING, UNSPECIFIED Status: Acute Current Visit: Yes (6) Anemia SNOMED Code(s): 131434478 ICD Code: D64.9 - ANEMIA, UNSPECIFIED Status: Acute Current Visit: No Qualifiers: Anemia type: iron deficiency Iron deficiency anemia type: chronic blood loss Qualified Code(s): D50.0 - Iron deficiency anemia secondary to blood loss (chronic) (7) Leukocytosis SNOMED Code(s): 788018320, 264868262 ICD Code: D72.829 - ELEVATED WHITE BLOOD CELL COUNT, UNSPECIFIED Status: Acute Current Visit: Yes (8) Hypokalemia SNOMED Code(s): 05999111 ICD Code: E87.6 - HYPOKALEMIA Status: Acute Current Visit: Yes Problem List Initiated/Reviewed/Updated: Yes Orders Last 24hrs: Active Orders 24 hr Category Date Time Status Admission Status [Patient Status] [ADT] Routine ADT 01/14/21 10:12 Ordered Blood Glucose Check, Bedside [RC] 07,11,17 Care 01/13/21 21:08 Active Intake and Output [RC] 06,14,22 Care 01/13/21 21:11 Active Oxygen Therapy [RC] PRN Care 01/13/21 21:08 Active Pulse Oximetry [RC] PRN Care 01/13/21 21:11 Active Up With Assistance [RC] ASDIRECTED Care 01/13/21 21:08 Active Vital Signs [RC] 08,12,16,20,00,04 Care 01/13/21 21:08 Active NPO Now [Nothing per Oral Now Diet] [DIET] Diet 01/14/21 Lunch Ordered CXR [Chest 2V] [CR] Routine Exams 01/14/21 10:11 Ordered MAGNESIUM [CHEM] AM Lab 01/15/21 05:11 Ordered Acetaminophen [TylenoL] Med 01/14/21 08:04 Active 650 mg PO Q4H PRN Docusate Sodium/Sennosides [Senna Plus] Med 01/13/21 21:08 Active 1 tab PO BID PRN Enoxaparin [Lovenox] Med 01/13/21 22:45 Active 40 mg SUBCUT BEDTIME Gabapentin [Neurontin] Med 01/13/21 22:45 Active 100 mg PO BEDTIME Insulin Glarg,Human.Rec.Analog [LantUS Solostar] Med 01/14/21 08:12 Active 54 units SUBCUT BEDTIME Insulin Lispro [HumaLOG] Med 01/13/21 23:00 Active 20 unit SUBCUT TIDAC Magnesium Oxide Med 01/14/21 09:00 Active 200 mg PO DAILY Metoprolol Succinate [Toprol XL] Med 01/14/21 09:00 Active 12.5 mg PO DAILY Mirtazapine [Remeron] Med 01/13/21 22:45 Active 15 mg PO BEDTIME Ondansetron [Zofran] Med 01/13/21 21:08 Active 4 mg IV Q4H PRN Pantoprazole [ProTONIX] Med 01/14/21 07:30 Active 40 mg PO ACBREAKFAST Rosuvastatin [Crestor] Med 01/14/21 09:00 Active 20 mg PO DAILY Sodium Chloride 0.9% [Normal Saline] 1,000 ml Med 01/13/21 21:00 Active IV ASDIRECTED Sodium Chloride 0.9% [Saline Flush] Med 01/13/21 19:30 Active 10 ml FLUSH ASDIRECTED PRN hydrOXYzine HCL [Vistaril] Med 01/13/21 21:08 Active 50 mg IM Q6H PRN Saline Lock Insert [OM.PC] Routine Oth 01/13/21 19:30 Ordered Resuscitation Status Routine Resus Stat 01/13/21 21:08 Ordered Medication Orders Acetaminophen (Acetaminophen 325 Mg Tab) 650 mg PO Q4H PRN PRN Reason: Temperature Last Admin: 01/14/21 08:36 Dose: 650 mg Documented by: OMA Enoxaparin Sodium (Lovenox) 40 mg SUBCUT BEDTIME [facility] Last Admin: 01/13/21 22:55 Dose: 40 mg Documented by: MARYLOU Gabapentin (Neurontin) 100 mg PO BEDTIME [facility] Last Admin: 01/13/21 22:55 Dose: 100 mg Documented by: MARYLOU Hydroxyzine HCl (Vistaril) 50 mg IM Q6H PRN PRN Reason: Nausea/Vomiting Sodium Chloride (Normal Saline) 1,000 mls @ 125 mls/hr IV ASDIRECTED [facility] Last Admin: 01/13/21 20:58 Dose: 125 mls/hr Documented by: MARYLOU Insulin Glargine (Insulin Glargine,Human Rec. Analog 100 Units/Ml 3 Ml Pen) 54 units SUBCUT BEDTIME [facility] Insulin Human Lispro (Humalog) 20 unit SUBCUT TIDAC [facility] Last Admin: 01/14/21 08:37 Dose: 20 units Documented by: OMA Cosigned by: MALINDA Admin: 01/13/21 22:54 Dose: 20 units Documented by: MARYLOU Cosigned by: ANNA Magnesium Oxide (Magnesium Oxide) 200 mg PO DAILY [facility] Last Admin: 01/14/21 10:04 Dose: 200 mg Documented by: OMA Metoprolol Succinate (Toprol Xl) 12.5 mg PO DAILY [facility] Last Admin: 01/14/21 10:05 Dose: 12.5 mg Documented by: OMA Mirtazapine (Remeron) 15 mg PO BEDTIME [facility] Last Admin: 01/13/21 22:55 Dose: 15 mg Documented by: MARYLOU Ondansetron HCl (Zofran) 4 mg IV Q4H PRN PRN Reason: Nausea/Vomiting Last Admin: 01/14/21 01:03 Dose: 4 mg Documented by: MARYLOU Pantoprazole Sodium (Protonix) 40 mg PO ACBREAKFAST [facility] Last Admin: 01/14/21 10:04 Dose: 40 mg Documented by: OMA Rosuvastatin Calcium (Crestor) 20 mg PO DAILY [facility] Last Admin: 01/14/21 10:04 Dose: 20 mg Documented by: [id number] Senna/Docusate Sodium (Senna Plus) 1 tab PO BID PRN PRN Reason: Constipation Sodium Chloride (Saline Flush) 10 ml FLUSH ASDIRECTED PRN PRN Reason: Keep Vein Open Assessment/Plan Comment:: Nausea and vomiting for approximately 5 days. Patient has past medical history significant for esophageal cancer treated with radiation and chemotherapy. Patient stated that he does have a fever that this feels similar to when he had esophageal cancer in the past. His last EGD was approximately 2 months ago and unremarkable. I consulted with Dr. King and patient will have an EGD this afternoon. Chest x-ray secondary to leukocytosis and diaphoresis with fever. Sliding scale insulin, Lovenox for DVT prophylaxis, Protonix for GI prophylaxis. Replete electrolytes as indicated.
[2021-01-14] MEDS: Potassium Chloride 100 ML IV SCH ×2 (11:51→16:43)
[2021-01-14] MEDS ORDERED: Lactated Ringers 1,000 ML IV SCH (12:30)
--- NOTE | 2021-01-14 12:39 | CR ---
INDICATION: Fever, history of esophageal CA, CABG. CHEST TWO VIEWS: AP and two lateral views of the chest were obtained 01/14/[address] scan from 10/17/19. Post median sternotomy changes again noted with the heart normal in size and shape. The aorta is tortuous with calcification in the arch. Bony structures appear to be grossly intact. Pulmonary markings are similar to the previous CT examination without a definite active infiltrate or effusion. Port is again noted in place with the tip unchanged in position compared with the previous CT examination. No free air is noted under the hemidiaphragm leaves. IMPRESSION: No acute process. Report was called to Dr. Mendoza at 1209 hours 01/14/21. [facility]
[2021-01-14] MEDS: Sodium Chloride 0.9% 1,000 ML IV SCH (15:43)
[2021-01-14] MEDS ORDERED: Piperacillin/Tazobactam 3.375 GM in Sodium Chloride 0.9% 50 ML IV SCH (15:45)
--- NOTE | 2021-01-14 17:26 | PCM.DCSUM1 ---
Discharge Summary - Hospital Course Free Text/Narrative:: Patient presented to the emergency department during the evening of 01/13/2021 after a 4 or 5-day history of nausea, vomiting, subjective fever. Patient was evaluated in the emergency department and found to have acute kidney injury, leukocytosis with left shift, dehydration, hypokalemia. Patient was admitted for further evaluation and rehydration. Urinalysis was unremarkable. COVID-19 was negative. Patient noted during am exam that the pain that he was having in his epigastric region was very similar to the pain that he had when he was diagnosed with esophageal cancer. His complaint of pain was substernal at the distal sternum. The esophageal cancer was treated with radiation and chemotherapy but not surgery. Patient underwent EGD in early afternoon hours which was unremarkable. Patient continued to have fever and condition continued to worsen. Chest x-ray was performed, unremarkable. Lactic acid, 1.5. Patient was again evaluated and CT scan was ordered. Verbal report on CT results suggested acute cholecystitis and peritonitis. CRP was ordered and was 36.8. Patient continued to have fever and developed hypotension, patient was given Tylenol and 500 mL bolus. Patient remains pyretic but hypotension has resolved. Patient remains tachycardic. Surgery recommended transfer to an acute care facility. [facility] accepted transfer. Patient will be transferred as soon as possible for acute care. Diagnosis: Stroke: No - Discharge Data Discharge Date: 01/14/21 Discharge Disposition: DC/Tfer to Acute Hospital 02 Condition: Poor - Referral to Home Health Primary Care Physician: Abelardo Huang MD - Discharge Diagnosis/Problem(s) (1) Acute kidney injury SNOMED Code(s): 52986426, 60703947 ICD Code: N17.9 - ACUTE KIDNEY FAILURE, UNSPECIFIED Status: Acute Current Visit: Yes (2) Dehydration SNOMED Code(s): 30495649 ICD Code: E86.0 - DEHYDRATION Status: Acute Current Visit: Yes (3) Diabetes mellitus SNOMED Code(s): 11217430 ICD Code: E11.9 - TYPE 2 DIABETES MELLITUS WITHOUT COMPLICATIONS Status: Acute Current Visit: Yes (4) Esophageal cancer SNOMED Code(s): 035598679 ICD Code: C15.9 - MALIGNANT NEOPLASM OF ESOPHAGUS, UNSPECIFIED Status: Resolved Current Visit: Yes (5) Nausea and vomiting SNOMED Code(s): 39037112 ICD Code: R11.2 - NAUSEA WITH VOMITING, UNSPECIFIED Status: Acute Current Visit: Yes (6) Anemia SNOMED Code(s): 619334706 ICD Code: D64.9 - ANEMIA, UNSPECIFIED Status: Acute Current Visit: No Qualifiers: Anemia type: iron deficiency Iron deficiency anemia type: chronic blood loss Qualified Code(s): D50.0 - Iron deficiency anemia secondary to blood loss (chronic) (7) Leukocytosis SNOMED Code(s): 274713061, 310809450 ICD Code: D72.829 - ELEVATED WHITE BLOOD CELL COUNT, UNSPECIFIED Status: Acute Current Visit: Yes (8) Hypokalemia SNOMED Code(s): 61457820 ICD Code: E87.6 - HYPOKALEMIA Status: Acute Current Visit: Yes (9) Acute cholecystitis SNOMED Code(s): 86033514 ICD Code: K81.0 - ACUTE CHOLECYSTITIS Status: Acute Current Visit: Yes (10) Peritonitis (acute) generalized SNOMED Code(s): 35093736 ICD Code: K65.0 - GENERALIZED (ACUTE) PERITONITIS Status: Acute Current Visit: Yes - Patient Summary/Data Operative Procedure(s) Performed: EGD - Discharge Plan *PRESCRIPTION DRUG MONITORING PROGRAM REVIEWED*: Not Applicable *COPY OF PRESCRIPTION DRUG MONITORING REPORT IN PATIENT ALDO: Not Applicable Home Medications: Home Meds Insulin Glarg,Human.Rec.Analog [Lantus] 54 unit SUBCUT BEDTIME 07/19/14 [History] Insulin Aspart [Novolog] 20 unit SQ TID 03/30/16 [History] Rosuvastatin [Crestor] 20 mg PO DAILY 05/18/18 [History] metFORMIN [Glucophage] 500 mg PO BEDTIME 05/18/18 [History] Aspirin [Aspirin EC] 325 mg PO DAILY 01/13/21 [History] Gabapentin [Neurontin] 100 mg PO BEDTIME 01/13/21 [History] Magnesium 200 mg PO DAILY 01/13/21 [History] Metoprolol Succinate [Toprol XL] 12.5 mg PO DAILY 01/13/21 [History] Mirtazapine 15 mg PO BEDTIME 01/13/21 [History] Pantoprazole Sodium [Protonix] 40 mg PO DAILY 01/13/21 [History] Forms: ED Department Discharge Referrals: Abelardo Huang MD [Primary Care Provider] - - Discharge Summary/Plan Comment DC Time >30 min.: Yes Discharge Summary/Plan Comment: Discharge to acute care hospital. - General Info Date of Service: 01/14/21 Admission Dx/Problem (Free Text: Admission Diagnosis/Problem Admission Diagnosis/Problem Nausea and vomiting - Review of Systems General: Reports: Fever, Weakness HEENT: Reports: No Symptoms Pulmonary: Reports: No Symptoms Cardiovascular: Reports: No Symptoms Gastrointestinal: Reports: Abdominal Pain, Decreased Appetite, Nausea, Vomiting Genitourinary: Reports: No Symptoms Musculoskeletal: Reports: No Symptoms Skin: Reports: No Symptoms Neurological: Reports: No Symptoms Psychiatric: Reports: No Symptoms - Patient Data Vitals - Most Recent: Last Vital Signs Temp 39.2 C H 01/14/21 17:18 Pulse 113 H 01/14/21 17:18 Resp 18 01/14/21 17:18 BP 118/66 01/14/21 17:18 Pulse Ox 95 01/14/21 17:13 Weight - Most Recent: 88.768 kg I&O - Last 24 hours: Intake & Output 01/14/21 01/14/21 01/14/21 06:59 14:59 22:59 Intake Total 1700 2191 Balance 1700 2191 Lab Results - Last 24 hrs: Laboratory Results - last 24 hr 01/13/21 01/13/21 01/13/21 Range/Units 19:50 19:50 19:50 WBC 13.1 H (3.2-10.1) x10-3/uL RBC 3.72 L (3.90-5.90) x10(6)uL Hgb 11.5 L (12.9-17.7) g/dL Hct 34.9 L (38.3-50.1) % MCV 93.8 (80.8-98.7) fL MCH 31.0 (27.0-33.3) pg MCHC 33.1 (28.7-35.3) g/dL RDW 13.9 (12.4-15.0) % Plt Count 251 (117-477) x10(3)uL MPV 7.5 (6.7-11.0) fL Neut % (Auto) 87.0 H (40.3-71.8) % Lymph % (Auto) 3.9 L (15.8-45.3) % [place] % (Auto) 9.0 (5.5-15.2) % Eos % (Auto) 0.1 (0.1-6.8) % Baso % (Auto) 0.0 L (0.3-3.8) % Neut # (Auto) 11.4 H (1.7-6.9) x10-3/uL Lymph # (Auto) 0.5 (0.5-4.5) x10-3/uL [place] # (Auto) 1.2 (0.0-1.2) x10-3/uL Eos # (Auto) 0.0 (0.0-0.6) x10-3/uL Baso # (Auto) 0.0 (0.0-0.3) x10-3/uL Sodium 130 L (135-145) mmol/L Potassium 3.8 (3.5-5.3) mmol/L Chloride 90 L D (100-110) mmol/L Carbon Dioxide 22 (21-32) mmol/L BUN 36 H (7-18) mg/dL Creatinine 2.4 H* (0.70-1.30) mg/dL Est Cr Clr Drug Dosing TNP Estimated GFR (MDRD) 26 L (>60) BUN/Creatinine Ratio 15.0 (9-20) Glucose 439 H* D (80-116) mg/dL POC Glucose (74-100) mg/dL Lactic Acid (0.4-2.0) mmol/L Calcium 8.6 (8.6-10.2) mg/dL Magnesium (1.8-2.5) mg/dL Total Bilirubin 0.5 (0.1-1.3) mg/dL AST 45 H D (5-25) IU/L ALT 35 D (12-36) U/L Alkaline Phosphatase 130 H (56-112) IU/L C-Reactive Protein (0.5-0.9) mg/dL Total Protein 7.1 (6.0-8.0) g/dL Albumin 2.7 L (3.2-4.6) g/dL Globulin 4.4 g/dL Albumin/Globulin Ratio 0.6 Amylase 18 L (25-115) U/L Lipase 26 L (73-393) U/L Urine Color (YELLOW) Urine Appearance (CLEAR) Urine pH (5.0-6.5) Ur Specific [place] (1.010-1.025) Urine Protein (NEGATIVE) mg/dL Urine Glucose (UA) (NORMAL) mg/dL Urine Ketones (NEGATIVE) mg/dL Urine Occult Blood (NEGATIVE) Urine Nitrite (NEGATIVE) Urine Bilirubin (NEGATIVE) Urine Urobilinogen (NEGATIVE) mg/dL Ur Leukocyte Esterase (NEGATIVE) Urine RBC (0-5) Urine WBC (0-5) Ur Squamous Epith Cells (NS,R,O) Amorphous Sediment Urine Bacteria (NS) Coarse Granular Casts (NS) SARS-CoV-2 RNA (RADHA) (NEGATIVE) 01/13/21 01/13/21 01/14/21 Range/Units 20:00 20:43 06:10 WBC 12.1 H (3.2-10.1) x10-3/uL RBC 3.88 L (3.90-5.90) x10(6)uL Hgb 11.9 L (12.9-17.7) g/dL Hct 36.2 L (38.3-50.1) % MCV 93.4 (80.8-98.7) fL MCH 30.8 (27.0-33.3) pg MCHC 33.0 (28.7-35.3) g/dL RDW 14.0 (12.4-15.0) % Plt Count 246 (117-477) x10(3)uL MPV 7.4 (6.7-11.0) fL Neut % (Auto) 87.3 H (40.3-71.8) % Lymph % (Auto) 3.6 L (15.8-45.3) % [place] % (Auto) 8.9 (5.5-15.2) % Eos % (Auto) 0.2 (0.1-6.8) % Baso % (Auto) 0.0 L (0.3-3.8) % Neut # (Auto) 10.6 H (1.7-6.9) x10-3/uL Lymph # (Auto) 0.4 L (0.5-4.5) x10-3/uL [place] # (Auto) 1.1 (0.0-1.2) x10-3/uL Eos # (Auto) 0.0 (0.0-0.6) x10-3/uL Baso # (Auto) 0.0 (0.0-0.3) x10-3/uL Sodium (135-145) mmol/L Potassium (3.5-5.3) mmol/L Chloride (100-110) mmol/L Carbon Dioxide (21-32) mmol/L BUN (7-18) mg/dL Creatinine (0.70-1.30) mg/dL Est Cr Clr Drug Dosing Estimated GFR (MDRD) (>60) BUN/Creatinine Ratio (9-20) Glucose (80-116) mg/dL POC Glucose (74-100) mg/dL Lactic Acid (0.4-2.0) mmol/L Calcium (8.6-10.2) mg/dL Magnesium (1.8-2.5) mg/dL Total Bilirubin (0.1-1.3) mg/dL AST (5-25) IU/L ALT (12-36) U/L Alkaline Phosphatase (56-112) IU/L C-Reactive Protein (0.5-0.9) mg/dL Total Protein (6.0-8.0) g/dL Albumin (3.2-4.6) g/dL Globulin g/dL Albumin/Globulin Ratio Amylase (25-115) U/L Lipase (73-393) U/L Urine Color Yellow (YELLOW) Urine Appearance Slightly cloudy (CLEAR) Urine pH 6.0 (5.0-6.5) Ur Specific [place] 1.020 (1.010-1.025) Urine Protein 30 H (NEGATIVE) mg/dL Urine Glucose (UA) >1000 H (NORMAL) mg/dL Urine Ketones 50 H (NEGATIVE) mg/dL Urine Occult Blood Large H (NEGATIVE) Urine Nitrite Negative (NEGATIVE) Urine Bilirubin Negative (NEGATIVE) Urine Urobilinogen Normal (NEGATIVE) mg/dL Ur Leukocyte Esterase Negative (NEGATIVE) Urine RBC 5-10 H (0-5) Urine WBC 0-5 (0-5) Ur Squamous Epith Cells Few H (NS,R,O) Amorphous Sediment Few Urine Bacteria Few H (NS) Coarse Granular Casts Few H (NS) SARS-CoV-2 RNA (RADHA) Negative (NEGATIVE) 01/14/21 01/14/21 01/14/21 Range/Units 06:10 11:50 14:22 WBC (3.2-10.1) x10-3/uL RBC (3.90-5.90) x10(6)uL Hgb (12.9-17.7) g/dL Hct (38.3-50.1) % MCV (80.8-98.7) fL MCH (27.0-33.3) pg MCHC (28.7-35.3) g/dL RDW (12.4-15.0) % Plt Count (117-477) x10(3)uL MPV (6.7-11.0) fL Neut % (Auto) (40.3-71.8) % Lymph % (Auto) (15.8-45.3) % Nicol[place] % (Auto) (5.5-15.2) % Eos % (Auto) (0.1-6.8) % Baso % (Auto) (0.3-3.8) % Neut # (Auto) (1.7-6.9) x10-3/uL Lymph # (Auto) (0.5-4.5) x10-3/uL [place] # (Auto) (0.0-1.2) x10-3/uL Eos # (Auto) (0.0-0.6) x10-3/uL Baso # (Auto) (0.0-0.3) x10-3/uL Sodium 133 L (135-145) mmol/L Potassium 3.3 L (3.5-5.3) mmol/L Chloride 95 L D (100-110) mmol/L Carbon Dioxide 27 (21-32) mmol/L BUN 36 H (7-18) mg/dL Creatinine 2.4 H* (0.70-1.30) mg/dL Est Cr Clr Drug Dosing 28.74 Estimated GFR (MDRD) 26 L (>60) BUN/Creatinine Ratio 15.0 (9-20) Glucose 224 H D (80-116) mg/dL POC Glucose 71 L (74-100) mg/dL Lactic Acid 1.5 (0.4-2.0) mmol/L Calcium 8.3 L (8.6-10.2) mg/dL Magnesium 2.1 (1.8-2.5) mg/dL Total Bilirubin (0.1-1.3) mg/dL AST (5-25) IU/L ALT (12-36) U/L Alkaline Phosphatase (56-112) IU/L C-Reactive Protein (0.5-0.9) mg/dL Total Protein (6.0-8.0) g/dL Albumin (3.2-4.6) g/dL Globulin g/dL Albumin/Globulin Ratio Amylase (25-115) U/L Lipase (73-393) U/L Urine Color (YELLOW) Urine Appearance (CLEAR) Urine pH (5.0-6.5) Ur Specific [place] (1.010-1.025) Urine Protein (NEGATIVE) mg/dL Urine Glucose (UA) (NORMAL) mg/dL Urine Ketones (NEGATIVE) mg/dL Urine Occult Blood (NEGATIVE) Urine Nitrite (NEGATIVE) Urine Bilirubin (NEGATIVE) Urine Urobilinogen (NEGATIVE) mg/dL Ur Leukocyte Esterase (NEGATIVE) Urine RBC (0-5) Urine WBC (0-5) Ur Squamous Epith Cells (NS,R,O) Amorphous Sediment Urine Bacteria (NS) Coarse Granular Casts (NS) SARS-CoV-2 RNA (RADHA) (NEGATIVE) 01/14/21 01/14/21 Range/Units 15:09 15:27 WBC (3.2-10.1) x10-3/uL RBC (3.90-5.90) x10(6)uL Hgb (12.9-17.7) g/dL Hct (38.3-50.1) % MCV (80.8-98.7) fL MCH (27.0-33.3) pg MCHC (28.7-35.3) g/dL RDW (12.4-15.0) % Plt Count (117-477) x10(3)uL MPV (6.7-11.0) fL Neut % (Auto) (40.3-71.8) % Lymph % (Auto) (15.8-45.3) % [place] % (Auto) (5.5-15.2) % Eos % (Auto) (0.1-6.8) % Baso % (Auto) (0.3-3.8) % Neut # (Auto) (1.7-6.9) x10-3/uL Lymph # (Auto) (0.5-4.5) x10-3/uL [place] # (Auto) (0.0-1.2) x10-3/uL Eos # (Auto) (0.0-0.6) x10-3/uL Baso # (Auto) (0.0-0.3) x10-3/uL Sodium (135-145) mmol/L Potassium (3.5-5.3) mmol/L Chloride (100-110) mmol/L Carbon Dioxide (21-32) mmol/L BUN (7-18) mg/dL Creatinine (0.70-1.30) mg/dL Est Cr Clr Drug Dosing Estimated GFR (MDRD) (>60) BUN/Creatinine Ratio (9-20) Glucose (80-116) mg/dL POC Glucose 82 (74-100) mg/dL Lactic Acid (0.4-2.0) mmol/L Calcium (8.6-10.2) mg/dL Magnesium (1.8-2.5) mg/dL Total Bilirubin (0.1-1.3) mg/dL AST (5-25) IU/L ALT (12-36) U/L Alkaline Phosphatase (56-112) IU/L C-Reactive Protein 36.8 H* (0.5-0.9) mg/dL Total Protein (6.0-8.0) g/dL Albumin (3.2-4.6) g/dL Globulin g/dL Albumin/Globulin Ratio Amylase (25-115) U/L Lipase (73-393) U/L Urine Color (YELLOW) Urine Appearance (CLEAR) Urine pH (5.0-6.5) Ur Specific [place] (1.010-1.025) Urine Protein (NEGATIVE) mg/dL Urine Glucose (UA) (NORMAL) mg/dL Urine Ketones (NEGATIVE) mg/dL Urine Occult Blood (NEGATIVE) Urine Nitrite (NEGATIVE) Urine Bilirubin (NEGATIVE) Urine Urobilinogen (NEGATIVE) mg/dL Ur Leukocyte Esterase (NEGATIVE) Urine RBC (0-5) Urine WBC (0-5) Ur Squamous Epith Cells (NS,R,O) Amorphous Sediment Urine Bacteria (NS) Coarse Granular Casts (NS) SARS-CoV-2 RNA (RADHA) (NEGATIVE) MIGUELITO Results - Last 24 hrs: Microbiology 01/14/21 15:23 Influenza Type A Antigen Screen - Final Nasal, Left NEGATIVE INFLUENZA A VIRUS AG REFERENCE RANGE: NEGATIVE Influenza Type B Antigen Screen - Final NEGATIVE INFLUENZA B VIRUS AG REFERENCE RANGE: NEGATIVE Med Orders - Current: Current Medications Acetaminophen (Acetaminophen 325 Mg Tab) 650 mg PO Q4H PRN PRN Reason: Temperature Last Admin: 01/14/21 15:14 Dose: 650 mg Documented by: Enoxaparin Sodium (Enoxaparin 40 Mg/0.4 Ml Syringe) 40 mg SUBCUT BEDTIME [facility] Last Admin: 01/13/21 22:55 Dose: 40 mg Documented by: Gabapentin (Gabapentin 100 Mg Cap) 100 mg PO BEDTIME TE[facility]A Last Admin: 01/13/21 22:55 Dose: 100 mg Documented by: Hydroxyzine HCl (Hydroxyzine Hcl 50 Mg/Ml Sdv) 50 mg IM Q6H PRN PRN Reason: Nausea/Vomiting Sodium Chloride (Normal Saline) 1,000 mls @ 125 mls/hr IV ASDIRECTED [facility] Last Infusion: 01/14/21 16:50 Dose: 999 mls/hr Documented by: Lactated Ringer's (Ringers, Lactated) 1,000 mls @ 125 mls/hr IV ASDIRECTED [facility] Piperacillin Sod/Tazobactam (Sod 3.375 gm/ Sodium Chloride) 50 mls @ 100 mls/hr IV Q6H [facility] Last Admin: 01/14/21 15:50 Dose: 100 mls/hr Documented by: Insulin Glargine (Insulin Glargine,Human Rec. Analog 100 Units/Ml 3 Ml Pen) 54 units SUBCUT BEDTIME [facility] Insulin Human Lispro (Insulin Lispro 100 Unit/Ml 3 Ml Kwikpen) 20 unit SUBCUT TIDAC [facility] Last Admin: 01/14/21 11:52 Dose: Not Given Documented by: Magnesium Oxide (Magnesium Oxide 400 Mg Tab) 200 mg PO DAILY [facility] Last Admin: 01/14/21 10:04 Dose: 200 mg Documented by: Metoprolol Succinate (Metoprolol Succinate 25 Mg Tab.Er) 12.5 mg PO DAILY [facility] Last Admin: 01/14/21 10:05 Dose: 12.5 mg Documented by: Mirtazapine (Mirtazapine 15 Mg Tab) 15 mg PO BEDTIME [facility] Last Admin: 01/13/21 22:55 Dose: 15 mg Documented by: Ondansetron HCl (Ondansetron 4 Mg/2 Ml Sdv) 4 mg IV Q4H PRN PRN Reason: Nausea/Vomiting Last Admin: 01/14/21 01:03 Dose: 4 mg Documented by: Pantoprazole Sodium (Pantoprazole 40 Mg Tab.Cr) 40 mg PO ACBREAKFAST [facility] Last Admin: 01/14/21 10:04 Dose: 40 mg Documented by: Rosuvastatin Calcium (Rosuvastatin 20 Mg Tab) 20 mg PO DAILY [facility] Last Admin: 01/14/21 10:04 Dose: 20 mg Documented by: Senna/Docusate Sodium (Docusate Sodium/Sennosides 50-8.6 Mg Tab) 1 tab PO BID PRN PRN Reason: Constipation Sodium Chloride (Sodium Chloride 0.9% 10 Ml Syringe) 10 ml FLUSH ASDIRECTED PRN PRN Reason: Keep Vein Open Discontinued Medications Gabapentin (Gabapentin 100 Mg Cap) 100 mg PO BEDTIME [facility] Sodium Chloride (Normal Saline) 1,000 mls @ 999 mls/hr IV ASDIRECTED [facility] Last Admin: 01/13/21 19:55 Dose: 999 mls/hr Documented by: Potassium Chloride (Kcl In Water 20 Meq/100 Ml) 100 mls @ 50 mls/hr IV Q2H [facility] Stop: 01/14/21 14:29 Last Admin: 01/14/21 16:43 Dose: 50 mls/hr Documented by: Insulin Glargine (Insulin Glargine,Human Rec. Analog 100 Units/Ml 3 Ml Pen) 54 units SUBCUT BEDTIME [facility] Last Admin: 01/13/21 22:53 Dose: 54 units Documented by: Mirtazapine (Mirtazapine 15 Mg Tab) 15 mg PO BEDTIME [facility] Non-Formulary Medication (Insulin Aspart [Novolog Flexpen]) 20 unit SQ TID [facility] Non-Formulary Medication (Insulin Glarg,Human.Rec.Analog [Lantus]) 54 unit SUBCUT BEDTIME [facility] Non-Formulary Medication (Insulin Aspart [Novolog Flexpen]) 20 unit SQ TID [facility] Last Admin: 01/14/21 13:32 Dose: Not Given Documented by: Ondansetron HCl (Ondansetron 4 Mg/2 Ml Sdv) 4 mg IVPUSH NOW STA Stop: 01/13/21 19:32 Last Admin: 01/13/21 19:55 Dose: 4 mg Documented by: Ondansetron HCl (Ondansetron 4 Mg/2 Ml Sdv) 4 mg IVPUSH NOW STA Stop: 01/13/21 20:45 Last Admin: 01/13/21 20:53 Dose: 4 mg Documented by: - Exam General: Reports: Moderate Distress HEENT: Reports: EOMI Lungs: Reports: Clear to Auscultation Cardiovascular: Reports: Regular Rhythm, Tachycardia GI/Abdominal Exam: Normal Bowel Sounds, Tender, Mass (Likely lipoma lower quadrant) Extremities: No Pedal Edema, Normal Capillary Refill Skin: Reports: Dry, Cool
--- NOTE | 2021-01-14 17:49 | CT ---
INDICATION: Hematuria, fever, leukocytosis. CT ABDOMEN AND PELVIS WITHOUT CONTRAST: Spiral 3.75 mm axial sections were obtained through the abdomen and pelvis without contrast with sagittal and coronal reconstructions 01/14/21 and compared with 10/17/19. Total exam DLP was 1043.83 mGy-cm. There is now noted minimal bibasilar parenchymal change, right greater than left, which could represent minimal pneumonia, but also could be partly hydrostatic. However, it was not present on the previous examination, raising suspicion of patchy pneumonia at the lung bases bilaterally. The heart did not appear enlarged. No pericardial effusion was seen. A small hiatal hernia is suggested, perhaps slightly increased in size. The gallbladder is markedly distended with calculi present. Thickening of the wall is also seen with some mild fat stranding but with extension of the fat stranding into the abdomen including into the epigastrium medially, extends into the paracolic gutter to a minimal extent also. Findings are felt to be compatible with acute cholecystitis. The pancreas is markedly fatty replaced. The liver appears grossly normal. The adrenal glands appeared normal. Mild renal cortical scarring is suggested. The spleen appeared normal with a probable splenule inferomedially. The appendix is not definitely visualized. No evidence of free air or definite bowel obstruction was identified. There is possibility of some thickening of the wall of the rectum, but it is not distended - correlate clinically. Urinary bladder was unremarkable. Prostate is somewhat prominent in size measuring 56 x 56 x 63 mm with some impingement on the floor of the urinary bladder. A somewhat nodular appearance is noted in that area. Degenerative hypertrophic changes and disk disease are noted at L4-5, L5-S1 and perhaps to a relatively minimal extent at L3-4. Calcifications are noted in the abdominal aorta without evidence of aneurysmal dilatation. IMPRESSION: 1. Findings are compatible with acute cholecystitis with cholelithiasis. Gallbladder measures 88 x 54 mm, but appears distended, especially compared with the previous examination. Peritonitis is suggested secondarily. 2. Renal cortical scarring. 3. ASD. 4. Prostatic enlargement. 5. Question of thickening of the wall of the rectum which may simply be on the basis of lack of distention - colonoscopy may be warranted for confirmation. Report was called to Dr. Mendoza at 1647 hours and was given by phone to Dr. Gillis at 1651 hours. [facility]
[2021-01-14] MEDS ORDERED: Phenylephrine 1% 10 MG/ML SDV IV ONE (18:09)
[2021-01-14] MEDS ORDERED: Insulin Lispro 100 Unit/ML 3 ML KwikPen SUBCUT ONE (18:09)
[2021-01-14] MEDS ORDERED: Lidocaine 2% 5 ML SDV INJECT ONE (18:09)
[2021-01-14] MEDS ORDERED: Lactated Ringers 1,000 ML IV ONE (18:09)
[2021-01-14] MEDS ORDERED: Propofol 200 MG/20 ML SDV IV ONE (18:09)
[2021-01-14] MEDS ORDERED: Glycopyrrolate 0.2 MG/ML 5 ML MDV IV ONE (18:09)
[2021-01-14] MEDS ORDERED: Insulin Glargine,Human Rec. Analog 100 Units/ML 3 ML Pen SUBCUT ONE (18:09)
[2021-01-14 18:10] VITALS: BP 104/60; PULSE 114
[2021-01-14] MEDS ORDERED: Mirtazapine 15 MG Tab PO SCH (21:00)
[2021-01-14] MEDS ORDERED: Gabapentin 100 MG Cap PO SCH (21:00)
[2021-01-14] MEDS ORDERED: INSULIN GLARGINE SUBCUT SCH (21:00)
--- NOTE | 2021-01-15 07:25 | OR ---
DATE OF OPERATION: 01/14/2021 SURGEON: Abilio King MD PREOPERATIVE DIAGNOSES: 1. Dysphagia. 2. History of esophageal cancer. POSTOPERATIVE DIAGNOSES: 1. Distal esophagitis. 2. Small hiatal hernia. PROCEDURE: EGD. ANESTHESIA: MAC. PROCEDURE IN DETAIL: The patient was brought to the procedure room, where he was placed on his left side and IV sedation administered. Oral bite block was placed and the upper endoscope advanced into the esophagus under direct vision without difficulty. Vocal cords were viewed and were normal. There were some thick secretions in the hypopharynx that were suctioned. The scope was advanced through the esophagus. In the distal esophagus, there was evidence of some chronic esophagitis without ulcers or erosions or strictures. I do not see any recurrence of malignancy. There was a small hiatal hernia present upon entering the stomach. Retroflexion was otherwise normal. The body and antrum of the stomach were normal. The antrum has a sharp curve into the duodenum, but I was able to intubate the duodenum and advanced to the second portion. All this appears normal. Air was removed and the scope slowly withdrawn. The patient tolerated the procedure well and returned to recovery in stable condition. The patient is currently on Protonix and we will recommend that he remain on this. He is currently scheduled for every 6 month surveillance endoscopies and will continue with this. /[id number] GLORY/MONICA
== END 2021-01-14 18:10 | DRG 871 ==
LOC: FB.ED 19:02 → FB.MS 21:33 → OBSVTOIN 01-14 10:12
PROVIDERS: ADMIT Emergency Medicine; ATTEND Student in an Organized Health Care Education/Training Program
PROC: 0DJ08ZZ Inspection of Upper Intestinal Tract, Via Natural or Artificial Opening Endoscopic (ICD-10-PCS; principal; 2021-01-14)
DX: A41.9 Sepsis, unspecified organism (principal); R11.2 Nausea with vomiting, unspecified; K65.0 Generalized (acute) peritonitis; N17.9 Acute kidney failure, unspecified; C15.9 Malignant neoplasm of esophagus, unspecified; K81.0 Acute cholecystitis; Z92.21 Personal history of antineoplastic chemotherapy; Z92.3 Personal history of irradiation; R65.20 Severe sepsis without septic shock; E86.0 Dehydration; E87.6 Hypokalemia; Z20.822 Contact with and (suspected) exposure to COVID-19; D72.829 Elevated white blood cell count, unspecified; E11.9 Type 2 diabetes mellitus without complications; R50.9 Fever, unspecified; D50.0 Iron deficiency anemia secondary to blood loss (chronic); K20.90 Esophagitis, unspecified without bleeding; K44.9 Diaphragmatic hernia without obstruction or gangrene; Z79.4 Long term (current) use of insulin; Z79.82 Long term (current) use of aspirin; Z79.899 Other long term (current) drug therapy; Z95.1 Presence of aortocoronary bypass graft; Z90.89 Acquired absence of other organs; Z90.49 Acquired absence of other specified parts of digestive tract; Z98.1 Arthrodesis status
CPT/HCPCS: 00731-QZ; 36415; 51702; 71046; 74176; 80048; 80053; 81001; 82150; 82962; 83605; 83690; 83735; 85025; 86140; 87040; 87077; 87186; 87804; 87804-59; 93005; 96365; 96366; 96368; 96372; 96374; 96375; 96376; 99284; 99285-25; A9270-GY; G0378; J1650; J1815; J1815-GY; J2370; J2405; J2543; J2704; J3480; J3490; J7030; J7120; U0002

== ENCOUNTER 2023-09-28 15:40 | Emergency (ER) | payer MEDICARE, BC ==
[2023-09-28 16:34] LABS: BASOPHILS ABSOLUTE AUTO 0.1 x10-3/uL (0.0-0.3); BASOPHILS PERCENT AUTO 0.7 % (0.3-3.8); EOSINOPHILS ABSOLUTE AUTO 0.1 x10-3/uL (0.0-0.6); EOSINOPHILS PERCENT AUTO 0.9 % (0.1-6.8); HEMATOCRIT 39.3 % (38.3-50.1); LYMPHOCYTES PERCENT AUTO 12.7 % (15.8-45.3); MEAN CORPUSCULAR HEMOGLOBIN 31.6 pg (27.0-33.3); MEAN CORPUSCULAR HGB CONC 33.2 g/dL (28.7-35.3); MEAN CORPUSCULAR VOLUME 95.1 fL (80.8-98.7); MEAN PLATELET VOLUME 7.4 fL (6.7-11.0); MONOCYTES ABSOLUTE AUTO 0.7 x10-3/uL (0.0-1.2); MONOCYTES PERCENT AUTO 8.8 % (5.5-15.2); NEUTROPHILS ABSOLUTE AUTO 5.8 x10-3/uL (1.7-6.9); NEUTROPHILS PERCENT AUTO 76.9 % (40.3-71.8); PLATELET COUNT,PLT 333 x10(3)uL (117-477); RED BLOOD CELL COUNT 4.13 x10(6)uL (3.90-5.90); RED CELL DISTRIBUTION WIDTH 14.1 % (12.4-15.0); WHITE BLOOD CELL COUNT,WBC 7.5 x10-3/uL (3.2-10.1)
[2023-09-28 16:43] LABS: A/G RATIO 0.8; ALANINE AMINOTRANSFERASE,ALT 28 U/L (12-36); ALBUMIN 3.8 g/dL (3.2-4.6); ALKALINE PHOSPHATASE 102 IU/L (56-112); ASPARTATE AMNIOTRANSFERASE,AST 22 IU/L (5-25); BILIRUBIN TOTAL 0.5 mg/dL (0.1-1.3); BLOOD UREA NITROGEN,BUN 42 mg/dL (7-18); BUN/CREATININE RATIO 16.8 (9-20); CALCIUM 9.5 mg/dL (8.6-10.2); CARBON DIOXIDE,CO2 27 mmol/L (21-32); CHLORIDE,CL 99 mmol/L (100-110); ESTIMATED GFR 26 mL/min (>60); MAGNESIUM 2.1 mg/dL (1.8-2.5); POTASSIUM,K 5.3 mmol/L (3.5-5.3); PROTEIN TOTAL,TP 8.3 g/dL (6.0-8.0); SODIUM,NA 134 mmol/L (135-145)
[2023-09-28 16:44] LABS: CREATININE 2.5 mg/dL (0.70-1.30); GLUCOSE RANDOM 484 mg/dL (80-116)
[2023-09-28] MEDS ORDERED: 50% Dextrose in Water 50 ML Syringe IVPUSH PRN (17:00)
[2023-09-28] MEDS ORDERED: Glucagon,Human Recombinant 1 MG Vial IM PRN (17:00)
[2023-09-28] MEDS: Insulin Lispro 100 Unit/ML 3 ML KwikPen SUBCUT ONE (17:07)
[2023-09-28 17:44] VITALS: BP 174/85; PULSE 63
== END 2023-09-28 17:40 | disposition home or self-care (01) ==
LOC: FB.ED 15:40
DX: S42.131A Displaced fracture of coracoid process, right shoulder, initial encounter for closed fracture (principal); R55 Syncope and collapse; E11.65 Type 2 diabetes mellitus with hyperglycemia; I10 Essential (primary) hypertension; I25.810 Atherosclerosis of coronary artery bypass graft(s) without angina pectoris; K21.9 Gastro-esophageal reflux disease without esophagitis; Z91.148 Patient's other noncompliance with medication regimen for other reason; Z79.899 Other long term (current) drug therapy; Z79.4 Long term (current) use of insulin; Z90.49 Acquired absence of other specified parts of digestive tract; W18.30XA Fall on same level, unspecified, initial encounter; Y93.01 Activity, walking, marching and hiking
CPT/HCPCS: 36415; 73030; 80053; 83735; 85025; 93005; 99284; J1815

== ENCOUNTER 2025-10-16 08:58 | Emergency (ER) | payer MEDICARE, BC ==
[2025-10-16] MEDS ORDERED: Sodium Chloride 0.9% 10 ML Syringe FLUSH PRN (09:09)
[2025-10-16 09:17] VITALS: BP 150/74; PULSE 52
[2025-10-16 09:42] LABS: BASOPHILS ABSOLUTE AUTO 0.1 x10-3/uL (0.0-0.3); BASOPHILS PERCENT AUTO 0.7 % (0.3-3.8); EOSINOPHILS ABSOLUTE AUTO 0.2 x10-3/uL (0.0-0.6); EOSINOPHILS PERCENT AUTO 1.9 % (0.1-6.8); LYMPHOCYTES ABSOLUTE AUTO 1.3 x10-3/uL (0.5-4.5); LYMPHOCYTES PERCENT AUTO 15.0 % (15.8-45.3); MEAN PLATELET VOLUME 7.3 fL (6.7-11.0); MONOCYTES ABSOLUTE AUTO 0.7 x10-3/uL (0.0-1.2); MONOCYTES PERCENT AUTO 8.6 % (5.5-15.2); NEUTROPHILS ABSOLUTE AUTO 6.2 x10-3/uL (1.7-6.9); NEUTROPHILS PERCENT AUTO 73.8 % (40.3-71.8); PLATELET COUNT,PLT 367 x10(3)uL (117-477); RED BLOOD CELL COUNT 4.28 x10(6)uL (3.90-5.90); RED CELL DISTRIBUTION WIDTH 14.3 % (12.4-15.0); WHITE BLOOD CELL COUNT,WBC 8.4 x10-3/uL (3.2-10.1)
[2025-10-16 09:45] LABS: BLOOD UREA NITROGEN,BUN 28 mg/dL (7-18); CARBON DIOXIDE,CO2 24 mmol/L (21-32); CHLORIDE,CL 105 mmol/L (100-110); CREATININE 1.8 mg/dL (0.70-1.30); EST CRCL DRUG DOSING (CG) 37.42 mL/min; ESTIMATED GFR 37 mL/min (>60); GLUCOSE RANDOM 204 mg/dL (80-116); POTASSIUM,K 4.5 mmol/L (3.5-5.3); SODIUM,NA 141 mmol/L (135-145)
[2025-10-16 09:50] LABS: A/G RATIO 0.9; ALANINE AMINOTRANSFERASE,ALT 28 U/L (12-36); ASPARTATE AMNIOTRANSFERASE,AST 22 IU/L (5-25); BILIRUBIN TOTAL 0.5 mg/dL (0.1-1.3); PROTEIN TOTAL,TP 7.5 g/dL (6.0-8.0)
[2025-10-16 10:23] LABS: SEDIMENTATION RATE MANUAL 43 mm/hr (0-15)
== END 2025-10-16 12:49 ==
LOC: FB.ED 08:58
DX: H53.132 Sudden visual loss, left eye (principal); R29.818 Other symptoms and signs involving the nervous system; E11.9 Type 2 diabetes mellitus without complications; K21.9 Gastro-esophageal reflux disease without esophagitis; I10 Essential (primary) hypertension; Z79.4 Long term (current) use of insulin; Z79.899 Other long term (current) drug therapy; Z90.89 Acquired absence of other organs; Z90.49 Acquired absence of other specified parts of digestive tract
CPT/HCPCS: 36415; 70450; 80053; 83735; 85025; 85651; 86140; 93005; 96365; 99285; A9270; 93010; J2919

== ENCOUNTER 2025-10-16 13:42 | Emergency (ER) | payer MEDICARE, BC ==
[2025-10-16 13:54] VITALS: BP 182/72; PULSE 55
== END 2025-10-16 19:30 ==
LOC: FB.ED 13:42
DX: H53.132 Sudden visual loss, left eye (principal); R68.89 Other general symptoms and signs; I10 Essential (primary) hypertension; I25.10 Atherosclerotic heart disease of native coronary artery without angina pectoris; E11.9 Type 2 diabetes mellitus without complications; K21.9 Gastro-esophageal reflux disease without esophagitis; Z79.899 Other long term (current) drug therapy; Z79.4 Long term (current) use of insulin; Z90.49 Acquired absence of other specified parts of digestive tract
CPT/HCPCS: 70544; 70544-26; 70547; 70547-26; 70551; 70551-26; 93010; 99285